=== PATIENT | male | born 1945 | race Caucasian/White ===

== ENCOUNTER 2018-08-01 11:46 | Observation (INO) ==
[2018-08-01 12:23] LABS: Basophils % 0.5 % (0.0-0.8); Eosinophils # 0.1 10*3/uL (0.0-0.87); Eosinophils % 1.7 % (0.00-10.9); Hematocrit 45.5 VOL% (42.0-52.0); Immature Granulocytes % 0.4 %; Immature Granulocytes Absolute 0.03 #; Lymphocytes # 1.8 10*3/uL (1.4-4.0); Lymphocytes % 21.3 % (21.2-54.2); Mean Corpuscular Hemoglobin 30 PG (27-34); Mean Corpuscular Volume 90.3 FL (87-102); Mean Platelet Volume 10.1 FL (9.6-12.0); Monocytes # 0.5 10*3/uL (0.11-0.8); Monocytes % 6.3 % (1.7-12.7); Neutrophils # 5.8 10*3/uL (1.4-7.4); Neutrophils % 69.8 % (38.7-73.9); Platelet Count 292 T/CUMM (130-400); Red Blood Count 5.04 MC/CUMM (3.8-5.5); Red Cell Distribution Width 13.2 % (9.3-17.3); White Blood Count 8.4 T/CUMM (4-12)
[2018-08-01 12:48] LABS: Alanine Aminotransferase 40 U/L (16-61); Alkaline Phosphatase 55 U/L (45-117); Aspartate Amino Transferase 24 U/L (0-37); Blood Urea Nitrogen 12 MG/DL (7-18); Glucose 113 MG/DL (74-106); Osmolality,Calculated 275.7 MOS/KG (273-304); Potassium 4.6 MMOL/L (3.5-5.1); Sodium 138 MMOL/L (136-145); Total Protein 8.1 G/DL (6.4-8.3); Troponin I < 0.015 NG/ML (0.00-0.045)
[2018-08-01] MEDS ORDERED: ASPIRIN 325 MG TABLET PO STA (13:09)
[2018-08-01] MEDS ORDERED: ENOXAPARIN 30 MG/0.3 ML SYRINGE SUBCUT STA (13:10)
[2018-08-01] MEDS ORDERED: BISACODYL 5 MG TABLET PO PRN (13:28)
[2018-08-01] MEDS ORDERED: ONDANSETRON 4 MG/2 ML VIAL IV PRN (13:28)
[2018-08-01] MEDS ORDERED: diphenhydrAMINE CAP 25 MG CAPSULE PO PRN (13:28)
[2018-08-01] MEDS ORDERED: MAGNESIUM SULF RIDER 4 GM in PREMIX 1 EACH IV PRN (13:28)
[2018-08-01] MEDS ORDERED: ACETAMINOPHEN 325 MG TABLET PO PRN (13:28)
[2018-08-01] MEDS ORDERED: DOCUSATE SODIUM 100 MG CAPSULE PO PRN (13:28)
[2018-08-01] MEDS ORDERED: guaiFENesin/DM ER 600-30 MG TABLET PO PRN (13:28)
[2018-08-01] MEDS ORDERED: POTASSIUM CHLORIDE 20 MEQ TABLET PO PRN (13:28)
[2018-08-01] MEDS ORDERED: PROMETHAZINE 25 MG TABLET PO PRN (13:28)
[2018-08-01] MEDS ORDERED: ZALEPLON 5 MG CAPSULE PO PRN (13:28)
[2018-08-01] MEDS ORDERED: MAGNESIUM SULF RIDER 2 GM in PREMIX 1 EACH IV PRN (13:28)
[2018-08-01] MEDS ORDERED: ENOXAPARIN 100 MG/ML SYRINGE SUBCUT ONE (13:54)
[2018-08-01] MEDS ORDERED: ALBUTEROL 2.5 MG/3 ML NEB RESP TX PRN (13:55)
[2018-08-01 13:57] LABS: Risk Ratio 5.23
[2018-08-01] MEDS ORDERED: MAGNESIUM HYDROXIDE SUSP 30 ML UDCUP PO PRN (14:44)
[2018-08-01] MEDS: GABAPENTIN 100 MG CAPSULE PO SCH ×2 (15:00→20:41)
[2018-08-01] MEDS: ACETAMINOPHEN 325 MG TABLET PO SCH ×2 (15:01→20:41)
[2018-08-01 19:01] LABS: Apearance,Urine CLEAR (Clear); Bacteria,Urine Occasional /HPF (Few); Bilirubin,Urine Negative (Negative); Blood, Urine Negative (Negative); Glucose,Urine (UA) Negative (Negative); Hyaline Casts,Urine 1 /LPF (0-3); Ketones,Urine Negative (Negative); Mucus,Urine Occasional /LPF (Occasional); Nitrite,Urine Negative (Negative); Protein,Urine Negative; RBC,Urine <1 /HPF (0-4); Urine Color Yellow (Yellow); Urine Specific Gravity 1.013 (1.001-1.035); WBC,Urine <1 /HPF (0-6)
[2018-08-01 19:31] LABS: Barbiturates Screen,Urine Negative (Negative); Benzodiazepines Screen,Urine Negative (Negative); Cannabinoid Screen,Urine Negative (Negative); Opiate Screen,Urine Negative (Negative); Phencyclidine Screen,Urine Negative (Negative)
[2018-08-01] MEDS ORDERED: SIMVASTATIN 80 MG TABLET PO SCH ×2 (21:00)
[2018-08-01] MEDS ORDERED: ENOXAPARIN 100 MG/ML SYRINGE SUBCUT SCH (21:00)
[2018-08-01] MEDS ORDERED: ASPIRIN EC 81 MG TABLET PO SCH (21:00)
[2018-08-02 05:22] LABS: Basophils # 0.1 10*3/uL (0.0-0.2); Basophils % 0.8 % (0.0-0.8); Eosinophils # 0.2 10*3/uL (0.0-0.87); Eosinophils % 3.2 % (0.00-10.9); Hematocrit 46.2 VOL% (42.0-52.0); Immature Granulocytes % 0.5 %; Immature Granulocytes Absolute 0.03 #; Lymphocytes # 2.2 10*3/uL (1.4-4.0); Lymphocytes % 36.9 % (21.2-54.2); Mean Corpuscular HGB Conc 32.5 GM/DL (32-36); Mean Corpuscular Hemoglobin 30 PG (27-34); Mean Corpuscular Volume 91.3 FL (87-102); Mean Platelet Volume 11.2 FL (9.6-12.0); Monocytes # 0.6 10*3/uL (0.11-0.8); Monocytes % 9.1 % (1.7-12.7); Neutrophils % 49.5 % (38.7-73.9); Platelet Count 177 T/CUMM (130-400); Red Blood Count 5.06 MC/CUMM (3.8-5.5); Red Cell Distribution Width 13.4 % (9.3-17.3)
[2018-08-02 05:23] LABS: Calcium 8.2 MG/DL (8.5-10.1); Osmolality,Calculated 276.7 MOS/KG (273-304); Potassium 4.5 MMOL/L (3.5-5.1)
[2018-08-02 08:29] VITALS: BP 161/89
[2018-08-02] MEDS: GABAPENTIN 100 MG CAPSULE PO SCH (08:47)
[2018-08-02] MEDS: ACETAMINOPHEN 325 MG TABLET PO SCH (08:48)
[2018-08-02] MEDS ORDERED: LOSARTAN 25 MG TABLET PO SCH (09:00)
[2018-08-02] MEDS ORDERED: ENOXAPARIN 100 MG/ML SYRINGE SUBCUT SCH (09:00)
[2018-08-02] MEDS ORDERED: PANTOPRAZOLE 40 MG TABLET PO SCH (09:00)
[2018-08-02] MEDS ORDERED: LISINOPRIL 5 MG TABLET PO SCH (09:30)
== END 2018-08-02 11:19 | disposition home or self-care (01) ==
LOC: N.ED 11:46 → N.EDINP 11:46 → N.2W 13:55 → N.TELES 16:36
PROVIDERS: ADMIT Internal Medicine Cardiovascular Disease; ATTEND Internal Medicine Cardiovascular Disease